=== PATIENT | female | born 1995 | race Caucasian/White ===

== ENCOUNTER 2021-04-12 10:05 | Emergency (ER) | payer OTHER ==
[~2021-04-12 10:05] MED LIST: COLACE 100MG C100 MG PO; IBUPROFEN600 MG PO; LORTAB 5-325 M1 EACH PO
[2021-04-12 11:19] LABS: HEMOGLOBIN 14.3 gm/dl (12.3-15.3); RED BLOOD COUNT 4.49 M/UL (4.00-5.10); WHITE BLOOD COUNT 3.6 K/UL (4.5-11.0)
[2021-04-12 11:46] LABS: BUN/CREATININE RATIO 7 (0-10)
[2021-04-12] MEDS ORDERED: IMITREX50 MG PO (13:23)
[2021-04-12] MEDS ORDERED: ZOFRAN ODT 4 MG4 MG PO (13:23)
== END 2021-04-12 13:32 | disposition home or self-care (01) ==
LOC: ER1 10:05
PROVIDERS: Emergency Medicine
DX: G43.909 Migraine, unspecified, not intractable, without status migrainosus (principal); F17.290 Nicotine dependence, other tobacco product, uncomplicated
CPT/HCPCS: 70496; 80053; 84703; 85025; 96374; 96375; 99284; J0780; J2060; Q9967